=== PATIENT | male | born 1970 | race Caucasian/White ===

== ENCOUNTER 2018-07-19 06:33 | Day surgery (SDC) | payer OTHER ==
[2018-07-16 10:46] VITALS: BMI 26.6
[2018-07-19 06:57] VITALS: TEMP 98
[2018-07-19] MEDS ORDERED: MIDAZOLAM HCL 2 MG/2 ML SINGLE DOSE VIAL ONE ×3 (08:15)
[2018-07-19] MEDS ORDERED: KETOROLAC TROMETHAMINE 30 MG/1 ML VIAL ONE (08:24)
[2018-07-19] MEDS ORDERED: DEXAMETHASONE SOD PHOSPHATE 4 MG/1 ML VIAL ONE (08:24)
[2018-07-19 09:02] VITALS: PULSE 57
--- NOTE | 2018-07-19 09:25 | OP ---
Operative Note - Note: Operative Date: 07/19/18 Pre-Operative Diagnosis: R renal stone Operation: Right ESWL Findings: 7 mm lower pole Right kidney stone Post-Operative Diagnosis: Same as Pre-op Surgeon: Richar Banuelos Anesthesia: Fractional Estimated Blood Loss (mls): 0
[2018-07-19] MEDS ORDERED: oxyCODONE HCL 5 MG TABLET PO PRN (09:43)
[2018-07-19] MEDS ORDERED: ONDANSETRON 4 MG/2 ML VIAL IVPUSH PRN (09:43)
[2018-07-19] MEDS ORDERED: PROMETHAZINE HCL 25 MG/1 ML VIAL IVPUSH PRN (09:43)
[2018-07-19] MEDS ORDERED: LACTATED RINGERS SOLUTION 1,000 ML IV SCH (09:45)
[2018-07-19 10:21] VITALS: BP 126/86
--- NOTE | 2018-07-19 21:32 | OP ---
DATE OF OPERATION: 07/19/2018 PREOPERATIVE DIAGNOSIS: Right renal stone. POSTOPERATIVE DIAGNOSIS: Right renal stone. PROCEDURE: Right extracorporeal shock wave lithotripsy. ATTENDING: Otilio Rivero MD ANESTHESIA: Fractional. DESCRIPTION OF OPERATION: The patient was brought in the operating room and placed in supine position on the operating room table. Ultrasonography and fluoroscopy were performed. A 7-mm right lower pole stone was identified. Anesthesia and antibiotics were then administered. Shock wave lithotripsy was then performed; 2500 impulses at 18 joules of power were administered to the stone. Excellent fragmentation was noted under real-time ultrasonography and fluoroscopy. The patient tolerated the procedure very well. No complications were noted. OTILIO RIVERO M.D. [id number]
== END 2018-07-19 10:21 | disposition home or self-care (01) ==
LOC: JASU-SURG 06:33
PROVIDERS: ATTEND Urology
PROC: 0TF3XZZ Fragmentation in Right Kidney Pelvis, External Approach (ICD-10-PCS; principal; 2018-07-19 08:00)
DX: N20.0 Calculus of kidney (principal)

== ENCOUNTER 2018-08-02 06:38 | Day surgery (SDC) | payer OTHER ==
[2018-07-29 14:08] VITALS: BMI 26.6
[2018-08-02] MEDS ORDERED: DESFLURANE GAS 240 ML BOTTLE IH ONE (07:15)
[2018-08-02] MEDS ORDERED: PROPOFOL 20 ML ONE (07:18)
[2018-08-02] MEDS ORDERED: MIDAZOLAM HCL 2 MG/2 ML SINGLE DOSE VIAL ONE (07:19)
[2018-08-02] MEDS ORDERED: SUCCINYLCHOLINE CHLORIDE 200 MG/10 ML VIAL ONE (07:19)
[2018-08-02] MEDS ORDERED: ONDANSETRON 4 MG/2 ML VIAL IVPUSH PRN (08:52)
[2018-08-02] MEDS ORDERED: oxyCODONE HCL 5 MG TABLET PO PRN ×2 (08:52)
[2018-08-02] MEDS ORDERED: LACTATED RINGERS SOLUTION 1,000 ML IV SCH (09:00)
--- NOTE | 2018-08-02 09:13 | OP ---
Operative Note - Note: Operative Date: 08/02/18 Pre-Operative Diagnosis: Left renal stone Operation: Left ESWL Findings: 5 mm upper lobe renal stone Post-Operative Diagnosis: Same as Pre-op Surgeon: Richar Banuelos Anesthesia: Fractional Estimated Blood Loss (mls): 0
[2018-08-02 09:18] VITALS: TEMP 97.8
[2018-08-02 10:09] VITALS: BP 129/84; PULSE 61
--- NOTE | 2018-08-02 22:01 | OP ---
DATE OF OPERATION: 08/02/2018 PREOPERATIVE DIAGNOSIS: Left renal stone. POSTOPERATIVE DIAGNOSIS: Left renal stone. PROCEDURE: Left extracorporeal shock wave lithotripsy. ATTENDING: Otilio Rivero MD ANESTHESIA: Fractional. DESCRIPTION OF OPERATION: The patient was brought in the operating room and placed in supine position on the operating room table. Ultrasonography and fluoroscopy were performed. A 5-mm left upper pole stone was identified. Anesthesia and preoperative antibiotics were then administered. Shockwave lithotripsy was then started; 2500 impulses at 18 joules of power were administered to the stone with excellent fragmentation noted under real-time ultrasonography and fluoroscopy. There were no complications noted. The disposition of the patient was to the recovery room. OTILIO RIVERO M.D. [id number]
== END 2018-08-02 10:11 | disposition home or self-care (01) ==
LOC: JASU-SURG 06:38
PROVIDERS: ATTEND Urology
PROC: 0TF4XZZ Fragmentation in Left Kidney Pelvis, External Approach (ICD-10-PCS; principal; 2018-08-02 08:00)
DX: N20.0 Calculus of kidney (principal)

== ENCOUNTER 2018-08-07 19:07 | Emergency (ER) | payer OTHER ==
[2018-08-07 19:24] VITALS: TEMP 97; BMI 27.3
--- NOTE | 2018-08-07 19:52 | PDOC ---
History of Present Illness - General Chief Complaint: Pain, Acute Stated Complaint: POST SURGERY PAIN Time Seen by Provider: 08/07/18 19:33 History Source: Patient Exam Limitations: No Limitations - History of Present Illness Travel History: No Initial Comments: 08/08/18 00:47 Best Contact: PCP: Dr. Roper/Urologist Pmhx: Renal colic Pshx: Lumbar fusion/right labrium tear repair, right wrist ganglion cyst removal Allergies:NKDA FH:0 Social Hx: Cigarettes/0 Alcohol/ social Drugs/0 LMP:N/A 47-year-old male presents to the emergency department complaining of left-sided groin pain times one day. Pain is described as 9/10 sharp nonradiating intermittent discomfort. Patient denies any alleviating or exacerbating factors. Patient states she recently had a 5 mm upper renal stone taken out of the left side by his urologist. Patient denies fever, chills, nausea/vomiting, headache, dizziness, neck/back pains, chest pain, shortness of breath, abdominal pains, flank pains, urinary symptoms: Frequency/urgency/hesitancy him hematuria. Patient states the pains are similar to his renal colic discomfort. Past History - Past Medical History Allergies/Adverse Reactions: Allergies Allergy/AdvReac Type Severity Reaction Status Date / Time No Known Drug Allergies Allergy Verified 08/07/18 19:19 Home Medications: Ambulatory Orders Ibuprofen 800 mg PO PRN PRN 07/16/18 Meloxicam 15 mg PO PRN PRN 07/16/18 Metaxalone [Metaxall] 800 mg PO PRN PRN 07/16/18 Tramadol HCl 50 mg PO PRN PRN 07/16/18 Tamsulosin HCl [Flomax] 0.4 mg PO DAILY #14 capsule 08/07/18 Anemia: No Asthma: No Cancer: No Cardiac Disorders: No CVA: No COPD: No CHF: No Dementia: No Diabetes: No GI Disorders: No Disorders: No (KIDNEY STONE) HTN: No Hypercholesterolemia: No Liver Disease: No Seizures: No Thyroid Disease: No - Surgical History Abdominal Surgery: Yes (HERNIA REPAIR) Appendectomy: No Cardiac Surgery: No Cholecystectomy: No Lung Surgery: No Neurologic Surgery: Yes (2011 "BACK FUSION SX") Orthopedic Surgery: No - Suicide/Smoking/Psychosocial Hx Smoking History: Never smoked Have you smoked in the past 12 months: No Information on smoking cessation initiated: No Hx Alcohol Use: No Drug/Substance Use Hx: No Substance Use Type: Alcohol Hx Substance Use Treatment: No Review of Systems - Review of Systems Able to Perform ROS?: Yes Comments:: 08/08/18 00:50 CONSTITUTIONAL: Absent: fever, chills, diaphoresis, generalized weakness, malaise, loss of appetite HEENT: Absent: rhinorrhea, nasal congestion, throat pain, throat swelling, difficulty swallowing, mouth swelling, ear pain, eye pain, visual Changes CARDIOVASCULAR: Absent: chest pain, loss of consciousness, palpitations, irregular heart rate, peripheral edema RESPIRATORY: Absent: cough, shortness of breath, dyspnea with exertion, orthopnea, wheezing, stridor, hemoptysis GASTROINTESTINAL: Absent: abdominal pain, abdominal distension, nausea, vomiting, diarrhea, constipation, melena, hematochezia GENITOURINARY: +Left groin pain Absent: dysuria, frequency, urgency, hesitancy, hematuria, flank pain, genital pain MUSCULOSKELETAL: Absent: myalgia, arthralgia, joint swelling SKIN: Absent: rash, itching, pallor HEMATOLOGIC/IMMUNOLOGIC: Absent: easy bleeding, easy bruising, lymphadenopathy, frequent infections ENDOCRINE: Absent: unexplained weight gain, unexplained weight loss, heat intolerance, cold intolerance NEUROLOGIC: Absent: headache, focal weakness or paresthesias, dizziness, unsteady gait, seizure, mental status changes, bladder or bowel incontinence PSYCHIATRIC: Absent: anxiety, depression, suicidal or homicidal ideation, hallucinations. Is the patient limited Uzbek proficient: No *Physical Exam - Vital Signs Last Vital Signs Temp Pulse Resp BP Pulse Ox 97 F L 77 16 100/76 100 08/07/18 19:07 08/07/18 19:07 08/07/18 19:07 08/07/18 19:07 08/07/18 19:07 - Physical Exam Comments: 08/08/18 00:50 GENERAL: Well developed, well nourished. Awake and alert. No acute distress. HEENT: Normocephalic, atraumatic. PERRLA, EOMI. No conjunctival pallor. Sclera are non- icteric. Moist mucous membranes. Oropharynx is clear. NECK: Supple. Full ROM. No JVD. Carotid pulses 2+ and symmetric, without bruits. No thyromegaly. No lymphadenopathy. CARDIOVASCULAR: Regular rate and rhythm. No murmurs, rubs, or gallops. Distal pulses are 2+ and symmetric. PULMONARY: No evidence of respiratory distress. Lungs clear to auscultation bilaterally. No wheezing, rales or rhonchi. ABDOMINAL: Soft. Non-tender. Non-distended. No rebound or guarding. No organomegaly. Normoactive bowel sounds. MUSCULOSKELETAL Normal range of motion at all joints. No bony deformities or tenderness. No CVA tenderness. EXTREMITIES: No cyanosis. No clubbing. No edema. No calf tenderness. SKIN: Warm and dry. Normal capillary refill. No rashes. No jaundice. NEUROLOGICAL: Alert, awake, appropriate. Cranial nerves 2-12 intact. No deficits to light touch and temperature in face, upper extremities and lower extremities. No motor deficits in the in face, upper extremities and lower extremities. Normoreflexic in the upper and lower extremities. Normal speech. Toes are down- going bilaterally. Gait is normal without ataxia. PSYCHIATRIC: Cooperative. Good eye contact. Appropriate mood and affect. ED Treatment Course - LABORATORY CBC & Chemistry Diagram: 08/07/18 20:00 08/07/18 20:00 - RADIOLOGY Radiograph Interpretation: 08/08/18 01:04 Renal colic: There is moderate left hydronephrosis and left hydroureter. There is a punctate calculus seen in the left UVJ . There is nonobstructing 3 mm calculus noted in the left upper pole collecting system. There is also a nonobstructing right renal calculus noted. There is a moderate amount of stool noted on the colon. Progress Note - Progress Note Progress Note: 1951hrs: Called pt's urologist/Dr. Banuelos 2016hrs: Spoke to DR. Banuelos. Call him back with CT renal colic report cell: [phone] Almost immediately after Toradol 30 mg IV, patient states pain is a 1/10. As per patient's urologist, he is to follow with him on Thursday morning. Advised to only give Flomax 0.4 mg daily and patient is to continue tramadol as needed for pain. *DC/Admit/Observation/Transfer Diagnosis at time of Disposition: Renal colic on left side - Discharge Dispostion Disposition: HOME Condition at time of disposition: Good Decision to Admit order: No - Prescriptions Prescriptions: Tamsulosin HCl [Flomax] 0.4 mg PO DAILY #14 capsule - Referrals Referrals: Richar Banuelos MD [Staff Physician] - - Patient Instructions Printed Discharge Instructions: Kidney Stones -- Adult Additional Instructions: Increase fluids Flomax daily as per your urologist Please see your Urologist on Thursday as per Dr. Banuelos Return to the ER for severe/persistent/worsening symptoms - Post Discharge Activity
[2018-08-07] MEDS ORDERED: SODIUM CHLORIDE 1,000 ML IV STA (19:53)
[2018-08-07] MEDS ORDERED: KETOROLAC TROMETHAMINE 30 MG/1 ML VIAL IVPUSH ONE (19:59)
[2018-08-07] MEDS ORDERED: KETOROLAC TROMETHAMINE 30 MG/1 ML VIAL ONE (20:05)
[2018-08-07 20:09] LABS: BASO % 0.2 % (0-2.0); EOS % 0.7 % (0-4.5); HEMATOCRIT 41.8 % (35.4-49); HEMOGLOBIN 14.3 GM/dL (11.7-16.9); LYMPH % 10.8 % (8-40); MCH 30.2 pg (25.7-33.7); MCHC 34.2 g/dl (32.0-35.9); MEAN CELL VOLUME 88.2 fl (80-96); MEAN PLT VOLUME 8.4 fl (7.5-11.1); MONO % 7.6 % (3.8-10.2); NEUT % 80.7 % (42.8-82.8); PLATELET COUNT 180 K/MM3 (134-434); RBC 4.73 M/mm3 (4.00-5.60); RDW 13.1 % (11.9-15.9); WHITE BLOOD COUNT 9.7 K/mm3 (4.0-10.0)
[2018-08-07 20:10] LABS: URINE APPEARANCE CLEAR; URINE BILIRUBIN NEGATIVE (<2.0 mg/dL); URINE COLOR LTYELLOW; URINE GLUCOSE (UA) NEGATIVE (NEGATIVE); URINE KETONE NEGATIVE (NEGATIVE); URINE LEUK ESTERASE NEGATIVE (NEGATIVE); URINE NITRITE NEGATIVE (NEGATIVE); URINE PROTEIN NEGATIVE (NEGATIVE); URINE UROBILINOGEN NEGATIVE mg/dL (0.2-1.0)
[2018-08-07 20:12] LABS: URINE HYALINE CAST 1 /lpf; URINE MUCUS RARE
[2018-08-07 20:35] LABS: ALBUMIN 3.8 g/dl (3.4-5.0); ALK PHOS 59 U/L (45-117); ANION GAP 11 MMOL/L (8-16); BILIRUBIN,TOTAL 0.7 mg/dL (0.2-1); BLOOD UREA NITROGEN 19 mg/dL (7-18); CALCIUM 8.8 mg/dL (8.5-10.1); CHLORIDE 105 mmol/L (98-107); CO2 25 mmol/L (21-32); CREATININE 1.4 mg/dL (0.55-1.3); GLUCOSE,RANDOM 87 mg/dL (74-106); SGPT/ALT 51 U/L (13-61); SODIUM 141 mmol/L (136-145); TOT PROT 7.4 g/dl (6.4-8.2)
[2018-08-07 20:36] LABS: POTASSIUM 3.9 mmol/L (3.5-5.1); SGOT/AST 37 U/L (15-37)
[2018-08-07] MEDS ORDERED: TAMSULOSIN HCL 0.4 MG CAP.ER.24H (FP) PO ONE (22:42)
[2018-08-07] MEDS ORDERED: TAMSULOSIN HCL 0.4 MG CAP.ER.24H (FP) ONE (22:51)
[2018-08-07] MEDS ORDERED: morphine CARPU-JECT 2 MG/1 ML DISP.SYRIN IVPUSH ONE (22:52)
[2018-08-07] MEDS ORDERED: ONDANSETRON 4 MG/2 ML VIAL IVPUSH ONE (22:52)
[2018-08-07] MEDS ORDERED: MORPHINE SULFATE 2 MG/ML VIAL ONE (22:55)
[2018-08-07] MEDS ORDERED: ONDANSETRON 4 MG/2 ML VIAL ONE (22:55)
[2018-08-07 23:40] VITALS: BP 123/84; PULSE 82
== END 2018-08-07 23:40 | disposition home or self-care (01) ==
LOC: JER 19:07
PROC: 3E0337Z Introduction of Electrolytic and Water Balance Substance into Peripheral Vein, Percutaneous Approach (ICD-10-PCS; principal; 2018-08-07)
PROC: 3E033NZ Introduction of Analgesics, Hypnotics, Sedatives into Peripheral Vein, Percutaneous Approach (ICD-10-PCS; 2018-08-07)
PROC: 3E033GC Introduction of Other Therapeutic Substance into Peripheral Vein, Percutaneous Approach (ICD-10-PCS; 2018-08-07)
PROC: 3E0333Z Introduction of Anti-inflammatory into Peripheral Vein, Percutaneous Approach (ICD-10-PCS; 2018-08-07)
DX: N13.2 Hydronephrosis with renal and ureteral calculous obstruction (principal); Z98.890 Other specified postprocedural states; Z87.442 Personal history of urinary calculi
CPT/HCPCS: 36415; 74176; 80053; 81003; 81015; 85025; 96361; 96374; 96375; 99283-25; J7030